=== PATIENT | female | born 2000 | race Two or more races ===

== ENCOUNTER → 2024-12-25 | Outpatient (CLI) | payer OTHER | END | disposition home or self-care (01) | LOC: PRENATAL 15:18 | PROVIDERS: ATTEND Obstetrics & Gynecology Maternal & Fetal Medicine | DX: O44.00 Complete placenta previa NOS or without hemorrhage, unspecified trimester (principal); O26.879 Cervical shortening, unspecified trimester; Z3A.20 20 weeks gestation of pregnancy ==

== ENCOUNTER → 2025-01-12 07:41 | Outpatient (CLI) | payer OTHER ==
[~2025-01-12 07:41] MED LIST: PRENATAL TABLE1 EAC1 PO; PROMETRIUM200 MG PO
== END | disposition home or self-care (01) ==
LOC: PRENATAL 07:41
PROVIDERS: ATTEND Obstetrics & Gynecology Maternal & Fetal Medicine
DX: O26.842 Uterine size-date discrepancy, second trimester (principal); O26.872 Cervical shortening, second trimester; Z3A.22 22 weeks gestation of pregnancy

== ENCOUNTER 2025-01-12 11:37 | Inpatient (IN) | payer OTHER ==
[~2025-01-12] VITALS: Ht 154.9 cm; Wt 65.3 kg
[2025-01-12 11:20] VITALS: BP 123/80
[2025-01-12] MEDS ORDERED: PROMETRIUM200 MG PO (11:47)
[2025-01-12] MEDS ORDERED: PRENATAL TABLE1 EAC1 PO (11:47)
[2025-01-12] MEDS ORDERED: RINGERS SOLUTION,LACTATED 1,000 ML IV SCH (12:00)
[2025-01-12 12:38] LABS: BASO % 0.2 % (0.1-1.2); EOS # 0.02 (0.04-0.54); EOS % 0.2 % (0.7-7.0); LYMPH # 2.35 (1.18-3.74); LYMPH % 18.4 % (19.3-53.1); MEAN PLATELET VOLUME 11.30 fl (9.4-12.4); MONO # 0.70 (0.24-0.82); MONO % 5.5 % (4.7-12.5); NEUT # 9.58 (1.56-6.13); NEUT % 75.0 % (34.0-71.1); RED CELL DISTRIBUTION WIDTH 12.1 % (11.6-14.4)
[2025-01-12 12:40] LABS: URINE APPEARANCE Turbid; URINE BILIRRUBIN Negative (NEGATIVE); URINE BLOOD Negative; URINE COLOR Yellow; URINE GLUCOSE Negative (NEGATIVE); URINE KETONE Negative (NEGATIVE); URINE LEUKOCYTE Trace; URINE NITRATE Negative; URINE PROTEIN Negative (NEGATIVE); URINE UROBILINOGEN 0.2 E.U./dl
[2025-01-12 12:44] LABS: URINE BACTERIA 58.7 uL (0.0-1933); URINE EPITHELIAL CELLS 9.9 uL (0.0-38.8); URINE RBC 2.1 uL (0.0-20.8); URINE WBC 33.0 uL (0.0-23.2)
[2025-01-12 12:48] LABS: URINE CAST 0.43 uL (0.0-1.40)
[2025-01-12] MEDS ORDERED: AZITHROMYCIN 500 MG VIAL IV SCH (13:00)
[2025-01-12 13:02] LABS: INR < 0.93
[2025-01-12] MEDS ORDERED: AMPICILLIN SODIUM/SULBACTAM NA 3,000 MG VIAL IV NR (13:15)
[2025-01-12] MEDS ORDERED: AZITHROMYCIN 500 MG VIAL IV ONE (13:24)
[2025-01-12] MEDS ORDERED: INDOMETHACIN 50 MG CAPSULE PO NR (13:30)
[2025-01-12] MEDS ORDERED: FAMOTIDINE/PF 20 MG/2 ML VIAL IV PUSH NR (13:30)
[2025-01-12] MEDS ORDERED: INDOMETHACIN 25 MG CAPSULE PO NR (14:45)
[2025-01-12 17:16] VITALS: BP 115/72
[2025-01-12] MEDS ORDERED: AMPICILLIN SODIUM/SULBACTAM NA 1,500 MG VIAL IV SCH (20:00)
[2025-01-12 20:10] VITALS: BP 118/66
[2025-01-12] MEDS ORDERED: FAMOTIDINE/PF 20 MG/2 ML VIAL IV SCH (22:15)
[2025-01-12] MEDS ORDERED: INDOMETHACIN 25 MG CAPSULE PO PRN (22:15)
[2025-01-12 23:39] VITALS: BP 92/60
[2025-01-13] VITALS (9 sets, daily range): BP systolic 82–130; BP diastolic 50–83; O2SAT 98
[2025-01-13] MEDS ORDERED: POVIDONE-IODINE 118 ML BOTT TOP ONE (07:20)
[2025-01-13] MEDS ORDERED: CHLORHEXIDINE GLUCONATE 120 ML BOTTLE TOP ONE (07:20)
[2025-01-13] MEDS ORDERED: AZITHROMYCIN 500 MG VIAL IV ONE (15:22)
[2025-01-14 04:15] VITALS: BP 95/59
[2025-01-14 06:30] VITALS: BP 100/66; O2SAT 98
[2025-01-14 11:44] VITALS: BP 115/73; O2SAT 97
[2025-01-14] MEDS ORDERED: AZITHROMYCIN 500 MG VIAL IV ONE (12:46)
[2025-01-14 15:26] VITALS: BP 103/67
== END 2025-01-14 14:57 | disposition home or self-care (01) | DRG 819 ==
LOC: O/R 11:37 → LDR 11:37 → O/R 01-13 10:41 → OB/GYN 01-13 12:09 → O/R 01-13 13:11 → LDR 01-13 15:33
PROVIDERS: Obstetrics & Gynecology Maternal & Fetal Medicine; ADMIT Obstetrics & Gynecology; ATTEND Obstetrics & Gynecology
PROC: 4A1HXCZ Monitoring of Products of Conception, Cardiac Rate, External Approach (ICD-10-PCS; 2025-01-12)
PROC: 0UVC7ZZ Restriction of Cervix, Via Natural or Artificial Opening (ICD-10-PCS; principal; 2025-01-13 07:00)
DX: O26.872 Cervical shortening, second trimester (principal); Z3A.23 23 weeks gestation of pregnancy

== ENCOUNTER 2025-01-27 06:33 | Outpatient (CLI) | payer OTHER | END 2025-01-27 06:34 | disposition home or self-care (01) | LOC: PRENATAL 06:33 | PROVIDERS: ATTEND Obstetrics & Gynecology Maternal & Fetal Medicine | DX: O26.842 Uterine size-date discrepancy, second trimester (principal); O36.8120 Decreased fetal movements, second trimester, not applicable or unspecified; O36.5920 Maternal care for other known or suspected poor fetal growth, second trimester, not applicable or unspecified; O26.872 Cervical shortening, second trimester; Z3A.24 24 weeks gestation of pregnancy ==

== ENCOUNTER → 2025-02-17 09:29 | Outpatient (CLI) | payer OTHER | END | disposition home or self-care (01) | LOC: PRENATAL 09:29 | PROVIDERS: ATTEND Obstetrics & Gynecology Maternal & Fetal Medicine | DX: O26.842 Uterine size-date discrepancy, second trimester (principal); O44.02 Complete placenta previa NOS or without hemorrhage, second trimester; O26.872 Cervical shortening, second trimester; Z3A.27 27 weeks gestation of pregnancy ==

== ENCOUNTER → 2025-03-09 13:55 | Outpatient (CLI) | payer OTHER | END | disposition home or self-care (01) | LOC: PRENATAL 13:55 | PROVIDERS: ATTEND Obstetrics & Gynecology Maternal & Fetal Medicine | DX: O26.843 Uterine size-date discrepancy, third trimester (principal); O36.8130 Decreased fetal movements, third trimester, not applicable or unspecified; O36.5930 Maternal care for other known or suspected poor fetal growth, third trimester, not applicable or unspecified; Z3A.29 29 weeks gestation of pregnancy ==